=== PATIENT | female | born 2000 | race Caucasian/White ===

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

== ENCOUNTER 2019-11-27 15:59 | Emergency (ER) | payer OTHER ==
[2019-11-27 16:18] VITALS: BP 107/65; PULSE 106; TEMP 101.5; BMI 19.8
--- NOTE | 2019-11-27 16:22 | PDOC ---
Rapid Medical Evaluation Time Seen by Provider: 11/27/19 16:16 Medical Evaluation: Allergies Allergy/AdvReac Type Severity Reaction Status Date / Time No Known Allergies Allergy Verified 11/27/19 16:16 11/27/19 16:16 Pt presents for evaluation of flu like symptoms since 12 this afternoon. No sick contacts. Admits to sore throat Exam: lungs CTAB, febrile 102 Orders: Strep and flu Pt to proceed to the ER for further evaluation Discharge Disposition - Diagnosis Flu-like symptoms - Referrals - Patient Instructions - Post Discharge Activity
[2019-11-27] MEDS ORDERED: IBUPROFEN 400 MG TABLET (FP) PO ONE ×2 (16:49→16:50)
--- NOTE | 2019-11-27 16:52 | PDOC ---
History of Present Illness - General Chief Complaint: Cold Symptoms Stated Complaint: FLU LIKE SYMPTOMS Time Seen by Provider: 11/27/19 16:16 History Source: Patient - History of Present Illness Timing/Duration: reports: this morning Severity: reports: mild Past History - Past Medical History Allergies/Adverse Reactions: Allergies Allergy/AdvReac Type Severity Reaction Status Date / Time No Known Allergies Allergy Verified 11/27/19 16:16 Home Medications: Ambulatory Orders Albuterol 0.083% Nebulizer Consuelo [Ventolin 0.083% Nebulizer Soln -] 1 neb NEB Q4H PRN #20 vial 12/11/18 Albuterol Sulfate Inhaler - [Ventolin HFA Inhaler -] 1 - 2 inh PO Q4H #1 inhaler 12/11/18 Amoxicillin - [Amoxicillin 500mg Capsule -] 500 mg PO BID #20 capsule 01/02/19 Asthma: Yes COPD: No - Immunization History Immunization Up to Date: Yes - Psycho Social/Smoking Cessation Hx Smoking History: Never smoked Have you smoked in the past 12 months: No Information on smoking cessation initiated: No Hx Alcohol Use: No Drug/Substance Use Hx: No Review of Systems - Review of Systems Constitutional: Yes: Chills, Fever, Malaise HEENTM: Yes: Throat Pain. No: Ear Pain Respiratory: Yes: Cough. No: Shortness of Breath ABD/GI: No: Nausea, Vomiting *Physical Exam - Vital Signs Last Vital Signs Temp Pulse Resp BP Pulse Ox 101.5 F H 106 H 20 107/65 97 11/27/19 16:17 11/27/19 16:17 11/27/19 16:17 11/27/19 16:17 11/27/19 16:17 - Physical Exam General Appearance: Yes: Appropriately Dressed. No: Apparent Distress HEENT: positive: Normal ENT Inspection, Normal Voice, TMs Normal, Pharynx Normal. negative: Scleral Icterus (R), Scleral Icterus (L) Neck: positive: Supple. negative: Lymphadenopathy (R), Lymphadenopathy (L) Respiratory/Chest: positive: Lungs Clear, Normal Breath Sounds. negative: Respiratory Distress Cardiovascular: positive: Regular Rate, S1, S2 Gastrointestinal/Abdominal: positive: Soft. negative: Tender Musculoskeletal: negative: CVA Tenderness Integumentary: positive: Dry, Warm Neurologic: positive: Fully Oriented, Alert, Normal Mood/Affect Medical Decision Making - Medical Decision Making 11/27/19 16:50 19 yo F, no sig hx, here with malaise with headache, congestion cough, sore throat and low-grade fever that started 11:00 today. Has not taken any meds. see exam Viral illness, ro flu and strep -dose of motrin given for low grade fever in ER 11/27/19 17:11 Flu and strep neg. Dc w/ supportive tx Discharge - Discharge Information Problems reviewed: Yes Clinical Impression/Diagnosis: Viral illness Condition: Good Disposition: HOME - Follow up/Referral - Patient Discharge Instructions Patient Printed Discharge Instructions: DI for Viral Upper Respiratory Infection -- Adult Additional Instructions: Your flu and strep are negative. Rest drink plenty fluids and take Motrin or Tylenol as needed for pain and or fever - Post Discharge Activity Work/Back to School Note: Back to School
== END 2019-11-27 17:13 | disposition home or self-care (01) ==
LOC: JERFT 15:59
DX: J06.9 Acute upper respiratory infection, unspecified (principal); B97.89 Other viral agents as the cause of diseases classified elsewhere
CPT/HCPCS: 87070; 87804; 87880; 99282-25